=== PATIENT | male | born 1990 | race Caucasian/White ===

== ENCOUNTER 2023-04-14 10:22 | Emergency (ER) | payer BC, SELFPAY ==
--- NOTE | ~2023-04-14 | XR_ITS ---
EXAMINATION: XR chest 2V DATE: 04/14/2023 11:07 INDICATION: Posterior left chest pain. TECHNIQUE: Frontal and lateral views of the chest were obtained. COMPARISON: None. FINDINGS: There are mild airspace opacities in left lower lung zone. No pleural effusion or pneumotho rax. The heart size is normal. IMPRESSION: 1. Mild airspace opacities in left lower lung zone, consistent with atelectasis versus pneumonia. Reviewed, dictated and finalized at location A. [facility]
[2023-04-14 10:47] VITALS: BP 117/57; PULSE 72; RESP 16; TEMP 36.3; O2SAT 100
--- NOTE | 2023-04-14 11:25 | ED.GENADULT ---
HPI - General Adult General Chief complaint: Back Pain/Injury Stated complaint: Side/Back pain Time Seen by Provider: 04/14/23 11:06 Source: patient and RN notes reviewed Mode of arrival: ambulatory Limitations: no limitations History of Present Illness HPI narrative: Patient presents today complaining of left mid back pain x1 week. Pain increases with deep breaths, but does not increase with coughing or sneezing. Currently rates his pain 3-4/10 and has tried no medication for symptoms prior to arrival. Prior to onset of symptoms patient was sick with cold symptoms. States he still occasionally has a mild cough, but is otherwise feeling well. States pain in the back is worse at night. Denies shortness of breath. Related Data Home Medications Medication Instructions Recorded Confirmed sertraline 50 mg tablet 50 mg PO DAILY 04/14/23 04/14/23 Allergies Allergy/AdvReac Type Severity Reaction Status Date / Time No Known Allergies Allergy Verified 04/14/23 10:50 Review of Systems Review of Systems: CONSTITUTIONAL: Denies body aches, fever, chills, or sweats. EYES: Denies visual changes, redness, or discharge. ENT: Denies rhinorrhea, congestion, sore throat, or otalgia. CARDIOVASCULAR: Denies chest pain, palpitations, or edema. RESPIRATORY: Denies cough or dyspnea. GASTROINTESTINAL: Denies abdominal pain, nausea, vomiting, or diarrhea. GENITOURINARY: Denies dysuria or hematuria. SKIN: Denies rash, itching, or wounds. MUSCULOSKELETAL: Denies joint pain, or myalgia.+ left mid back pain NEUROLOGIC: Denies headache, numbness, tingling, or weakness. PSYCH: Denies depression or anxiety. PMFSH Comments At time of signature, I have reviewed and agree with nursing past medical, surgical, social and family history unless otherwise noted. Please see nursing chart for further information. There is no relevant family history pertinent to the presenting complaint Exam Narrative: GENERAL: Well-appearing, well-nourished, and in no acute distress. HEAD: Normocephalic, atraumatic. EYES: EOMI. No redness or drainage. Conjunctivae normal. ENT: Mucous membranes pink and moist. NECK: Normal AROM. Supple. No lymphadenopathy. CHEST: No respiratory distress. Slight squeak to the left lower lobe, otherwise clear. HEART: Regular rate and rhythm. No murmur appreciated. EXTREMITIES: Normal range of motion. No edema. SKIN: Warm, dry, no rash. Capillary refill normal. Normal skin turgor. NEURO: No focal deficits. Alert and oriented x3. Gait steady. PSYCH: Normal affect. No signs of depression or anxiety. Course Course Level of Care: Express Care Visit Vital Signs Vital signs: Vital Signs Temperature 97.3 F L 04/14/23 10:47 Pulse Rate 72 04/14/23 10:47 Respiratory Rate 16 04/14/23 10:47 Blood Pressure 117/57 L 04/14/23 10:47 Pulse Oximetry 100 04/14/23 10:47 Temperature 97.3 F L 04/14/23 10:47 Pulse Rate 72 04/14/23 10:47 Respiratory Rate 16 04/14/23 10:47 Blood Pressure 117/57 L 04/14/23 10:47 Pulse Oximetry 100 04/14/23 10:47 Reviewed Medical Decision Making MDM Narrative Medical decision making narrative: X-ray shows left lower lobe atelectasis versus pneumonia. Will treat patient with azithromycin due to his recent illness. Will also treat him with short course of prednisone to help with his pain and likely pleurisy. Patient agrees with plan. Anticipatory guidance given. Differential Diagnosis Differential Diagnosis: Pleurisy, pneumonia, mid back strain, kidney stone Vital Signs Vital Signs: Vital Signs Temperature 97.3 F L 04/14/23 10:47 Pulse Rate 72 04/14/23 10:47 Respiratory Rate 16 04/14/23 10:47 Blood Pressure 117/57 L 04/14/23 10:47 Pulse Oximetry 100 04/14/23 10:47 Temperature 97.3 F L 04/14/23 10:47 Pulse Rate 72 04/14/23 10:47 Respiratory Rate 16 04/14/23 10:47 Blood Pressure 117/57 L 04/14/23 10:47 Pulse Oximetry 10
== END 2023-04-14 11:31 | disposition home or self-care (01) ==
PROVIDERS: Emergency Provider Nurse Practitioner
DX: R09.1 Pleurisy (principal); J18.9 Pneumonia, unspecified organism
CPT/HCPCS: 71046; 99213; G0463